=== PATIENT | male | born 1950 | race Caucasian/White ===

== ENCOUNTER 2017-01-12 13:42 | Emergency (ER) | payer OTHER ==
[~2017-01-12] VITALS: Ht 177.8 cm; Wt 99.8 kg
[~2017-01-12 13:42] MED LIST: ASPIRIN EC81 M1 PO; BACTROBAN22 TOP; CLINDAMYCIN HY300 MG PO; CLOPIDOGREL75 M1 PO; COZAAR25 M1 PO; FLOMAX0.4 M1 PO; KEFLEX500 MG PO; LEVAQUIN500 MG PO; LEVAQUIN750 MG PO; LIDODERM 5% PAT1 PAT TOP; LOTRISONE CREAM15 GM TOP; MEDROL DOSEPAK1 PAC PO; METOPROLOL TART25 M1 PO; MOTRIN 600 MG600 MG PO; NITROSTAT0.4 M1 SL; NOVAPLUS V0.09 MG/Ac INH; PROTONIX40 M3 PO; ROBITUSSIN W/CO10 ML PO; TRAMADOL50 MG PO; ULTRAM(MONOGRAP50 MG PO
--- NOTE | 2017-01-12 13:51 | ED CARDIAC/CP/PALPITATIONS ---
History of Present Illness General Chief Complaint: Chest Pain Stated Complaint: CP Source: patient, family, old records Exam Limitations: no limitations Allergies Coded Allergies: acetaminophen (From PERCOCET) (Intermediate, NAUSEA VOMITING 01/12/17) hydrocodone (From Vicodin) (Intermediate, NAUSEA/VOMITING 01/12/17) oxycodone (From PERCOCET) (Intermediate, NAUSEA VOMITING 01/12/17) Reconcile Medications Albuterol Sulfate (Proair Hfa) 90 MCG HFA.AER.AD 2 PUF INH Q4-6 PRN PRN BREATHING PROBLEMS (Reported) Aspirin (Ecotrin*) 81 MG TABLET.DR 1 TAB PO DAILY HEART HEALTH (Reported) Clopidogrel Bisulfate (Clopidogrel) 75 MG TABLET 1 TAB PO DAILY BLOOD THINNER (Reported) Losartan Potassium (Cozaar) 25 MG TABLET 1 TAB PO DAILY BP (Reported) Metoprolol Tartrate 25 MG TABLET 1 TAB PO BID HEART (Reported) Nitroglycerin (Nitrostat) 0.4 MG TAB.SUBL 1 TAB SL AD ANGINA (Reported) 1st sign of attack; may repeat every 5 minutes until relief; if pain persists after 3 tablets in 15 minutes, prompt medical att Pantoprazole Sodium (Protonix) 40 MG TABLET.DR 1 TAB PO DAILY GI (Reported) Tamsulosin HCl (Flomax) 0.4 MG CAP.ER.24H 1 CAP PO DAILY PROSTATE (Reported) Triage Note: PT TO ED WITH C/O CHEST PAIN X15 MINUTES, HX [place] AND STENTS. HAVING CHEST PAINS FOR THE LAST FEW MONTHS, TAKING NITRO. Triage Nurses Notes Reviewed? yes HPI: Patient presented with sudden onset of substernal crushing chest pain. Patient states similar to his prior heart attack. Patient states that he has 8 stents in already. Pain started 20 minutes ago. There is no radiation. Patient denies aggravating or mitigating factors. Patient took 10 of his home nitroglycerin without any relief. Patient feels slightly short of breath and sweaty but denies any nausea or vomiting. The pain is 10 out of 10. Patient took 5 tablets of 81 mg of aspirin and he took his Plavix this morning. (ADELA NGUYỄN,MOSHE Livingston) Vital Signs & Intake/Output Vital Signs & Intake/Output Vital Signs Date Time Temp Pulse Resp B/P Pulse O2 O2 Flow FiO2 Ox Delivery Rate 01/12 1438 72 20 152/90 100 Nasal 2.0L Cannula 01/12 1408 63 20 148/79 100 Nasal 2.0L Cannula 01/12 1349 98.1 68 20 167/84 100 Room Air Room Air Past History Travel History Traveled to [place] past 21 day No Medical History Any Pertinent Medical History? 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 No (ADELA NGUYỄN,MOSHE Livingston) Review of Systems Review of Systems Constitutional: Reports: no symptoms. EENTM: Reports: no symptoms. Respiratory: Reports: see HPI, short of breath. Cardiovascular: Reports: see HPI, chest pain. GI: Reports: no symptoms. Genitourinary: Reports: no symptoms. Musculoskeletal: Reports: no symptoms. Skin: Reports: see HPI. Neurological/Psychological: Reports: no symptoms. Hematologic/Endocrine: Reports: no symptoms. Immunologic/Allergic: Reports: no symptoms. All Other Systems: Reviewed and Negative (ADELA NGUYỄN,MOSHE Livingston) Physical Exam Physical Exam General Appearance: well developed/nourished, alert, awake, anxious, severe distress Head: atraumatic, normal appearance Eyes: Bilateral: PERRL, EOMI. Ears, Nose, Throat: normal pharynx, normal ENT inspection Neck: normal inspection, supple, full range of motion Respiratory: normal breath sounds, chest non-tender, no respiratory distress, lungs clear Cardiovascular: regular rate/rhythm, normal peripheral pulses Gastrointestinal: normal bowel sounds, soft, non-tender, no organomegaly Back: normal inspection, normal range of motion Extremities: normal inspection, normal capillary refill, no edema Neurologic/Psych: no motor/sensory deficits, awake, alert, oriented x 3, normal mood/affect Skin: intact, normal color, warm/dry, diaphoresis Lymphatic: no anterior cervical valentín Core Measures ACS in differential dx? Yes ASA ordered for poss ACS? PT TOOK PSYCHIATRY RESIDENT Severe Sepsis Present: No Septic Shock Present: No (MOHSE CHAPMAN MD) Progress Differential Diagnosis: AMI, aortic dissection, atrial fibrillation, cholecystitis, musculoskeletal pain, myocarditis, pericarditis, pneumonia, pneumothorax Diagnostic Imaging: Viewed by Me: Radiology Read. Discussed w/RAD: Radiology Read. Initial ED EKG: OLD ANTERIOR WALL [place], ACUTE ST SEG ELEVATIONS INFERIORLY, NEW FROM PRIOR EKG Prior EKG: changed Rhythm Strip: normal sinus rhythm (MOSHE CHAPMAN MD) Plan of Care: Orders Procedure Date/time Status XRY-PORTABLE CHEST XRAY 01/12 1403 Active Telemetry/Collar Folder Operator 01/12 1350 Active TROPONIN LEVEL 01/12 1350 Complete PARTIAL THROMBOPLASTIN TIME 01/12 1350 Complete PROTHROMBIN TIME 01/12 1350 Complete MAGNESIUM 01/12 1350 Complete COMPREHENSIVE METABOLIC PANEL 01/12 1350 Complete CBC WITHOUT DIFFERENTIAL 01/12 1350 Complete EKG 01/12 1350 Active EKG 01/12 1343 Active Laboratory Tests 01/12/17 1350: Anion Gap 14, Estimated GFR 56 L, BUN/Creatinine Ratio 19.2, Glucose 114 H, Calcium 9.4, Magnesium 1.9, Total Bilirubin 0.8, AST 18, ALT 29, Alkaline Phosphatase 82, Troponin I < 0.01, Total Protein 7.3, Albumin 4.4, Globulin 2.9, Albumin/Globulin Ratio 1.5, PT 11.2, INR 1.07, APTT 37, CBC w Diff NO MAN DIFF REQ, RBC 5.16, MCV 89.5, MCH 29.1, RDW 13.7, MPV 9.6, Gran % 51.2, Lymphocytes % 35.3, Monocytes % 8.2, Eosinophils % 4.6, Basophils % 0.7, Absolute Granulocytes 3.6, Absolute Lymphocytes 2.5, Absolute Monocytes 0.6, Absolute Eosinophils 0.3, Absolute Basophils 0, PUBS MCHC 32.5 L Departure Departure Disposition: OTHER [facility]AL [facility] (ACUTE) Condition: Guarded Clinical Impression Primary Impression: AMI (acute myocardial infarction) Referrals: ALIYAH SANDERS (PCP/Family) Departure Forms: Customer Survey General Discharge Information (MOSHE CHAPMAN MD) Critical Care Note Critical Care Note Critical Care Time: mins: (30 MIN) (MOSHE CHAPMAN MD) Critical Care Note Critical Care Time: mins: (30 MIN) (MOSHE CHAPMAN MD.)
[2017-01-12] MEDS ORDERED: PROAIR HFA8.5 GM INH (13:57)
[2017-01-12 13:59] LABS: ABSOLUTE BASOPHIL COUNT 0 /CUMM (0.0-0.2); ABSOLUTE EOSINOPHIL COUNT 0.3 /CUMM (0.0-0.7); ABSOLUTE GRANULOCYTE CT 3.6 /CUMM (1.4-6.5); MEAN PLATELET VOLUME 9.6 FL (7.4-10.4)
[2017-01-12 14:02] LABS: ABSOLUTE LYMPH COUNT 2.5 /CUMM (1.2-3.4); ABSOLUTE MONOCYTE COUNT 0.6 /CUMM (0.10-0.60); BASOPHIL % 0.7 % (0.0-2.0); EOSINOPHIL % 4.6 % (0-5); GRANULOCYTE % 51.2 % (42.2-75.2); HEMATOCRIT 46.2 % (42-52); MEAN CORPUSCULAR HGB 29.1 PG (27.0-31.0); MEAN CORPUSCULAR HGB CONC 32.5 G/DL (33.0-37.0); MEAN CORPUSCULAR VOLUME 89.5 FL (80.0-94.0); PLATELET COUNT 234 /CUMM (130-400); RBC DISTRIBUTION WIDTH 13.7 % (11.5-14.5); RED BLOOD CELL CT 5.16 /CUMM (4.70-6.10); WHITE BLOOD CELL COUNT 7.1 /CUMM (4.8-10.8)
[2017-01-12 14:09] LABS: PT 11.2 SEC (9.4-12.5); PTT 37 SEC (25-37)
[2017-01-12 14:38] VITALS: BP 152/90
--- NOTE | 2017-01-12 14:51 | Cons- Cardiology ---
General Information and HPI Consulting Request Date of Consult: 01/12/17 Requested By: Kim Decker David Reason for Consult: Acute coronary syndrome/acute inferolateral wall myocardial infarction. Source of Information: patient, family, old records Exam Limitations: clinical condition, poor historian History of Present Illness: Mr. Nikolay Bazan is a 66-year-old male with a history of obesity, hypertension, dyslipidemia, and strong family history for coronary artery disease and coronary artery disease with previous anterior STEMI and multiple percutaneous coronary interventions who presented with complaints of severe ("10 /") substernal chest discomfort with radiation to his left arm, shortness of breath, and diaphoresis that began approximately 45 minutes ago. Being aware that he might be having an ACS he took a total of 10 sublingual nitroglycerin sequentially without relief along with 2 aspirin. He is compliant with his present medical regimen that includes: aspirin 81 mg daily, clopidogrel 75 mg daily, losartan 25 mg daily, metoprolol 25 mg twice daily, sublingual nitroglycerin 0.4 mg as needed. He had previously been on statin therapy, but discontinued this as it made him "too weak". Allergies/Medications Allergies: Coded Allergies: acetaminophen (From PERCOCET) (Intermediate, NAUSEA VOMITING 01/12/17) hydrocodone (From Vicodin) (Intermediate, NAUSEA/VOMITING 01/12/17) oxycodone (From PERCOCET) (Intermediate, NAUSEA VOMITING 01/12/17) Home Med List: Albuterol Sulfate (Proair Hfa) 90 MCG HFA.AER.AD 2 PUF INH Q4-6 PRN PRN BREATHING PROBLEMS (Reported) Aspirin (Ecotrin*) 81 MG TABLET.DR 1 TAB PO DAILY HEART HEALTH (Reported) Clopidogrel Bisulfate (Clopidogrel) 75 MG TABLET 1 TAB PO DAILY BLOOD THINNER (Reported) Losartan Potassium (Cozaar) 25 MG TABLET 1 TAB PO DAILY BP (Reported) Metoprolol Tartrate 25 MG TABLET 1 TAB PO BID HEART (Reported) Nitroglycerin (Nitrostat) 0.4 MG TAB.SUBL 1 TAB SL AD ANGINA (Reported) 1st sign of attack; may repeat every 5 minutes until relief; if pain persists after 3 tablets in 15 minutes, prompt medical att Pantoprazole Sodium (Protonix) 40 MG TABLET.DR 1 TAB PO DAILY GI (Reported) Tamsulosin HCl (Flomax) 0.4 MG CAP.ER.24H 1 CAP PO DAILY PROSTATE (Reported) Review of Systems Review of Systems: A 14 point system review was obtained and was noncontributory, other than as above. 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 Surgical History Surgical History: non-contributory Psychosocial History ETOH Use: denies use Illicit Drug Use: denies illicit drug use Exam & Diagnostic Data Vital Signs and I&O Vital Signs Date Time Temp Pulse Resp B/P Pulse O2 O2 Flow FiO2 Ox Delivery Rate 01/12 1438 72 20 152/90 100 Nasal 2.0L Cannula 01/12 1408 63 20 148/79 100 Nasal 2.0L Cannula 01/12 1349 98.1 68 20 167/84 100 Room Air Room Air Intake & Output 01/12 1600 01/12 0800 01/12 0000 01/11 1600 01/11 0800 01/11 0000 Intake Total Output Total Balance Patient 220 lb Weight Physical Exam: Well-developed, obese middle-aged male in moderate distress with nasal oxygen in place. Vital signs: See above. HEENT: Normocephalic, atraumatic, EOMI, dry mucous membranes. Neck: No JVD, no bruits. Lungs: Decreased breath sounds with a few bibasilar crackles. Heart: S1, S2 (both distant) with no murmur, gallop, or rub appreciated. PMI not well felt. Abdomen: Soft, nontender, positive bowel sounds. Extremities: No edema. Labs/Jose R Results: Laboratory Tests 01/12 1350 Chemistry Sodium (137 - 145 mmol/L) 145 Potassium (3.5 - 5.1 mmol/L) 4.1 Chloride (98 - 107 mmol/L) 107 Carbon Dioxide (22 - 30 mmol/L) 23 Anion Gap (5 - 16) 14 BUN (9 - 20 mg/dL) 25 H Creatinine (0.7 - 1.2 mg/dL) 1.3 H Estimated GFR (>60 ml/min) 56 L BUN/Creatinine Ratio (7 - 25 %) 19.2 Glucose (65 - 99 mg/dL) 114 H Calcium (8.4 - 10.2 mg/dL) 9.4 Magnesium (1.6 - 2.3 mg/dL) 1.9 Total Bilirubin (0.2 - 1.3 mg/dL) 0.8 AST (17 - 59 U/L) 18 ALT (21 - 72 U/L) 29 Alkaline Phosphatase (< 127 U/L) 82 Troponin I (<0.11 ng/ml) < 0.01 Total Protein (6.3 - 8.2 g/dL) 7.3 Albumin (3.5 - 5.0 g/dL) 4.4 Globulin (1.9 - 4.2 gm/dL) 2.9 Albumin/Globulin Ratio (1.1 - 2.2 %) 1.5 Coagulation PT (9.4 - 12.5 SEC) 11.2 INR (0.90 - 1.17) 1.07 APTT (25 - 37 SEC) 37 Hematology CBC w Diff NO MAN DIFF REQ WBC (4.8 - 10.8 /CUMM) 7.1 RBC (4.70 - 6.10 /CUMM) 5.16 Hgb (14.0 - 18.0 G/DL) 15.0 Hct (42 - 52 %) 46.2 MCV (80.0 - 94.0 FL) 89.5 MCH (27.0 - 31.0 PG) 29.1 RDW (11.5 - 14.5 %) 13.7 Plt Count (130 - 400 /CUMM) 234 MPV (7.4 - 10.4 FL) 9.6 Gran % (42.2 - 75.2 %) 51.2 Lymphocytes % (20.5 - 51.1 %) 35.3 Monocytes % (1.7 - 9.3 %) 8.2 Eosinophils % (0 - 5 %) 4.6 Basophils % (0.0 - 2.0 %) 0.7 Absolute Granulocytes (1.4 - 6.5 /CUMM) 3.6 Absolute Lymphocytes (1.2 - 3.4 /CUMM) 2.5 Absolute Monocytes (0.10 - 0.60 /CUMM) 0.6 Absolute Eosinophils (0.0 - 0.7 /CUMM) 0.3 Absolute Basophils (0.0 - 0.2 /CUMM) 0 PUBS MCHC (33.0 - 37.0 G/DL) 32.5 L Diagnostic Data EKG Results (01/12/2017) sinus rhythm, acute inferolateral wall myocardial infarction with high lateral reciprocal changes, and indeterminate age anterior wall myocardial infarction. Faster rate and new inferolateral wall ST elevation when compared to previous tracing presently 11/27/2015. Assessment/Plan Assessment/Plan Acute coronary syndrome/acute inferolateral wall myocardial infarction in this middle-aged male with a history of hypertension, dyslipidemia, strong family history for coronary artery disease, and history of coronary artery disease status post remote anterior wall myocardial infarction and multiple percutaneous coronary interventions. Management options were discussed Beni, his and daughter and emergent transfer for cardiac catheterization with an eye towards revascularization was recommended. This recommendation was excepted by family members and questions regarding the procedure were answered to the family satisfaction. Mr. 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 Added to his at home medical regimen with nasal oxygen and intravenous heparin. Further recommendations will follow, Thank you. Consult Acknowledgment - Thank you for your consult request.
--- NOTE | 2017-01-12 15:01 | RADIOLOGY REPORT ---
EXAMINATION: XR PORTABLE CHEST CLINICAL INFORMATION: Chest pain. COMPARISON: Chest x-ray 11/27/2015. TECHNIQUE: Portable AP view of the chest was obtained. FINDINGS: The lungs are hypoinflated. Mildly prominent bilateral lung markings are nonspecific and could reflect bronchovascular crowding given low lung volumes although a superimposed infectious process cannot be excluded in the appropriate clinical setting. No pleural effusions or pneumothoraces are identified. Cardiomediastinal contours are stable. Soft tissues are unremarkable. No acute osseous abnormality is identified. IMPRESSION: Pulmonary hypoinflation. Mildly prominent bilateral lung markings are nonspecific and could reflect bronchovascular crowding given low lung volumes although a superimposed atypical infectious process cannot be excluded in the appropriate clinical setting. Correlate with lab values and patient symptomatology.
== END 2017-01-12 15:06 | disposition short-term general hospital (02) ==
LOC: ERH 13:42
PROVIDERS: Emergency Medicine
DX: I21.3 ST elevation (STEMI) myocardial infarction of unspecified site (principal); R07.2 Precordial pain; I10 Essential (primary) hypertension
CPT/HCPCS: 93005; 93010; 96374; 96375; 99291; J1644